=== PATIENT | female | born 1955 | race Caucasian/White ===

== ENCOUNTER 2025-05-31 10:51 | Outpatient (OUT) | payer MEDICARE, SELFPAY ==
--- NOTE | 2025-05-31 | XR_ITS ---
The [address] [address] Patient Name: ELVI BOYKIN MRN: [id number] date: 1955 Sex: F Assigned Patient Location: [facility] Current Patient Location: [facility] Accession/Order Number: [id number] Exam Date: 05/31/2025 11:02 Report Date: 05/31/2025 12:29 At the request of: KAREN MCKEON DO Procedure: XR hip RT 1V w/ pelvis RIGHT HIP WITH AP PELVIS - 3 views CLINICAL DATA: Chronic right hip pain. Patient plays pickle ball. COMPARISON: None AP view of the pelvis as well as AP and frog-lateral views of the right hip were obtained. There is mild osteopenia. No acute fracture or dislocation is identified. The hip joint spaces are maintained. There is no prominent hypertrophy. There is mild sclerosis at the SI joints and mild degenerative change at the lower imaged lumbar spine. No soft tissue abnormalities are present. Hemostasis clips are visualized at the proximal medial right thigh. XR/XR hip RT 1V w/ pelvis IMPRESSION: NO ACUTE BONY FINDINGS. Impression dictated by: Cathleen Squires M.D. 05/31/2025 12:29 PM Dictation Location: [place] [address] Electronically authenticated by: [id number] Y Date: 05/31/2025 12:29
--- OUTSIDE RECORDS SUMMARY | 2025-05-31 10:53 | XMS_ITS | Clinical Summary ---
Author Organization [facility] Address [address] [place] [address] Care Team Providers Care Web Services Architect Name Role Phone José Bourgeois MD Primary Care Provider Unav ailable Allergies Active Allergy Reactions Criticality Noted Date Comments Demeclocycline Unknown 07/24/2017 Oxaprozin Rash Medium 07/24/2017 Facial burning Medications aspirin, enteric coated (ASPIRIN, ENTERIC COATED) 81 mg EC tablet Take 81 mg by mouth. Active LIPITOR 20 mg tablet 8 Active raloxifene (EVISTA) 60 mg tablet 8 Active celecoxib (CELEBREX) 200 mg capsule Take 200 mg by mouth. 8 Active multivit with min-folic acid (ADULT MULTIVITAMIN EXTRA VITD3) 200 mcg chew Take by mouth. Active fluocinonide (LIDEX) 0.05 % ointment APPLY TO AFFECTED AREAS ON GROIN WEEKLY. 5 8 Active PROTONIX 40 mg tablet 8 Active ZOLOFT 100 mg tablet 8 Active zolpidem (AMBIEN) 10 mg tab Take 10 mg by mouth. 8 Active ranitidine HCl (ZANTAC 150 EFFERDOSE ORAL) Take by mouth. Active cholecalciferol, vitamin D3, (VITAMIN D-3) 10 mcg (400 unit) cap Take 400 Units by mouth once daily. Active Cetirizine 10 mg cap 10 mg. 9 Active alendronate (FOSAMAX) 70 mg tablet Take 1 tablet by mouth one time a week. 3 Active Active Problems No known active problems Family History Medical History Relation Comments Heart Father Cancer Mother Cancer Paternal Grandmother Glaucoma Sister Heart Sister Strabismus Sister Relation Status Comments Father Mother Paternal Grandmother Sister Social History Tobacco Use Types Packs/Day Years Used Date Smoking Tobacco: Never Smokeless Tobacco: Never Alcohol Use Standard Drinks/Week Comments Yes 0 (1 standard drink = 0.6 oz pur e alcohol) [facility] Area Deprivation Index Answer Date Thaddeus rded National Score (1-100), lower number is lower ri sk 26 04/10/2024 State Score (1-10), lower number is lower risk 1 04/10/2024 Data from: https://www.neighborhoodatlas.medicine.[facility]/. Last address used for calculation [address] 04/10/2024 Comments Unknown Sex and Gender Information Value Date Recorded Sex Assigned at Not on file Legal Sex Female 3:08 PM EDT Gender Identity Not on file Sexual Orientation Not on file Plan of Treatment Health Maintenance Due Date Last Done Comments Anxiety Screening 1972 Depression Screening 1972 Hepatitis C Screening [address] Colonography 11/24/1999 Cologuard (FIT-DNA) 11/24/1999 Colonoscopy 11/24/1999 Colorectal Cancer Screening 11/24/1999 Fecal Occult Blood 11/24/1999 Sigmoidoscopy 11/24/1999 Bone Density Screening 11/24/2019 Diabetes Screening 2022 11/24/2019 Advance Directive Discussion 09/23/2024 Lipid Screening 2024 11/24/2019 Influenza Vaccine (#1) 2025 3, 08/04/2022, 08/15/2021, Additional history exists RSV Vaccine (1 - 1-dose 75+ series) 2029 DTaP,Tdap,Td Vaccine (3 - Td or Tdap) 04/28/2033 04/28/2023, 10/05/2013 Pneumococcal Vaccine: 50+ Completed 10/04/2021, Shingrix Vaccine Completed 01/04/2022, , 03/22/2015 Insurance [facility] MEDICARE ADVANTAGE PPO Care Teams Web Services Architect Relationship Specialty Start Date End Date José Bourgeois MD PCP - General Family Medicine 07/03/18
--- OUTSIDE RECORDS SUMMARY | 2025-05-31 10:53 | XMS_ITS | Encounter Summary ---
Author Organization [facility] Address [address] [place] [address] Care Team Providers Care Hand Quilter Name Role Phone Asim Schaffer DO Primary Care Provider [phone] Lilly Kapadia MD Unavailable [phone] Shari Hankins DO Unavailable [phone] Encounter Details Date Type Department Care Team (Late st Contact Info) Description 06/08/2024 Abstract [facility] [place] [facility] [address] [place] [phone] Asim Schaffer DO [address] [place] [address] Social History Tobacco Use Types Packs/Day Years Used Date Smoking Tobacco: Never Smokeless Tobacco: Never Alcohol Use Standard Drinks/Week Comments Yes 1 (1 standard drink = 0.6 oz pure alcohol) caffeine intake : 1-2 cups per day decaf PHQ-2 Answer Date Recorded Patient Health Questionnaire-2 Score 0 06/04/2024 Comments No Sex and Gender Information Value Date Recorded Sex Assigned at Female 09/23/2023 5:20 PM EST Legal Sex Female 7:28 PM EDT Gender Identity Female 09/23/2023 5:20 PM EST Sexual Orientation Straight 09/23/2023 5 :20 PM EST documented as of this encounter Plan of Treatment Upcoming Encounters Date Type Department Care Team (Late st Contact Info) Description 06/03/2025 9:40 AM EDT Office Visit [facility] [address] [facility] [address] [place] [address] Asim Schaffer DO [address] [facility] [address] [place] [address] 10/14/2025 9:30 AM EST Office Visit [facility] [address] [facility] [address] [phone] Shari Hankins DO [address] [address] documented as of this encounter Visit Diagnoses Not on filedocumented in this encounter Care Teams Hand Quilter Relationship Specialty Start Date End Date Asim Schaffer DO [address] [facility] [address] [place] [address] PCP - General Family Medicine 06/04/24 Lilly Kapadia MD [address] [place] [address] Referring Physician Dermatology 06/04/24 Shari Hankins DO [address] [phone] Referring Physician Obstetrics and Gynecology 11/30/24 documented as of this encounter
--- OUTSIDE RECORDS SUMMARY | 2025-05-31 10:53 | XMS_ITS | Clinical Summary ---
Author Organization [facility] Address [address] [place] [address] Care Team Providers Care Medicare Sales Executive Name Role Phone Unavailable Primary Care Provider Unavailabl e Allergies Active Allergy Reactions Criticality Noted Date Comments Oxaprozin Rash Medium 07/24/2017 Facial burning Tetracyclines & Related 07/24/2017 Medications Calcium 600 MG Tab Take 2 tablets by mouth daily. Active Multiple Vitamins-Minerals (MULTIVITAMIN ADULT) Tab Take 1 tablet by mouth daily. Active Probiotic Product (4X PROBIOTIC PO) Lactobac 40-Bifido 3-S.Thermop Lactobac 40-Bifido 3-S.Thermop Active 1 TAB Oral Daily July 30, 2019 3:34pm 07-30-2019 [facility] ([id number]) 019 Active Cetirizine HCl 10 MG capsule 1 capsule. 019 Active Nutritional Supplements (VITAMIN D MAINTENANCE PO) Take 2 tablets by mouth daily. Active Vitamin D3 25 MCG (1000 UT) tablet Take 5 tablets by mouth daily. Calcium and D3 OTC gummy Active hydrocortisone 2.5 % Ointment ointment APPLY TO GROIN AREA DAILY ON SAT, SAT, SUN. 023 Active Ascorbic acid 500 MG tablet Take 1 tablet by mouth daily. Active zolpidem 5 MG tabletIndications:Insom lester, unspecified type Take 1 tablet by mouth at bedtime as needed for Sleep. 90 tablet 023 Active Clobetasol 0.05 % Ointment Apply 1 Application topically 2 times daily. 023 Active Celecoxib 200 MG capsuleIndications:Arth ritis Take 1 capsule by mouth daily. 90 capsule 1 024 Active Sertraline 100 MG tabletIndications:Depre ssion, unspecified depression type Take 1.5 tablets by mouth daily. 135 tablet 1 024 Active Atorvastatin (Lipitor) 20 MG tabletIndications:Pure hypercholesterolemia Take 1 tablet by mouth daily. 90 tablet 3 024 Active Pantoprazole (Protonix) [address] tablet DRIndications:Gastroeso phageal reflux disease without esophagitis Take 1 tablet by mouth daily. 90 tablet 3 024 Active alendronate 70 MG tabletIndications:Osteo penia of multiple sites Take 1 tablet by mouth every 7 days. 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 Fibrocystic breast disease 05/01/2017 Varicose vein of leg 05/01/2017 Arthritis 05/01/2017 Hyperlipidemia Osteopenia Resolved Problems Problem Noted Date Diagnosed Date Resolved Date Thrombophlebitis 05/01/2017 05/08/2018 Immunizations Immunization Administration Dates Next Due [id number] COVID-19 monovalen t vaccine, mRNA, Pfizer, 0.3 ML 11/14/2020,11/07/2020 COVID-19 bivalent vaccine (Moderna) 12yr+, 50mcg/0.5mL 09/10/2022 Influenza Vaccine 09/03/2013, 2,08/18/2011,2008 Influenza Vaccine 0.5ml 08/07/2010 Influenza Vaccine 0.5ml ([facility]) 06/23/2012, 08/18/2011 Influenza Vaccine, Preservat jose eduardo Free ID 08/05/2017 Influenza Vaccine, Quadrival ent, Adjuvanted 07/03/2023 Influenza Vaccine, Trivalent 07/14/2024,09/03/20 13 Influenza, High-dose Seasona l, Quadrivalent, Preservative Free 08/04/2022,08/15/2021,06/13/2020 Influenza, injectable, quadr ivalent, preservative free 08/26/2019,05/30/2018,07/24/2017,2015 Pneumococcal Conjugate 13-va lent vaccine 06/13/2020 Pneumococcal Polysac 23-Roma nt Vaccine 10/04/2021 Tdap Vaccine 04/28/2023,10/05/2013 Zoster Vaccine, Live 03/22/2015 Zoster Vaccine, Recomb 01/04/2022,09/06/2021 influenza, injectable, quadrivalent 07/24/2017 Family History Medical History Relation Name Comments Arthritis - Osteo Father GI Disease Father Breast Cancer Mother Relation Name Status Comments Father Mother (Age 66) Social History Tobacco Use Types Packs/Day Years Used Date Smoking Tobacco: Never Smokeless Tobacco: Never Tobacco Cessation:Counseling Given: Not Answered Alcohol Use Standard Drinks/Week Comments Yes 0 (1 standard drink = 0.6 oz pur e alcohol) Depression Answer Date Recorded PHQ-9 Total Score (Interpret ation of Total Score 1-4 = Minimal depression; 5-9 = Mild depression; 10-14 = Moderate depression; 15-19 = Moderately severe depression) 1 12/11/2023 Comments No Sex and Gender Information Value Date Recorded Sex Assigned at Not on file Legal Sex Female 3:25 PM EDT Gender Identity Female 05/01/2017 9:37 AM EDT Sexual Orientation Not on file Last Filed Vital Signs Vital Sign Reading Time Taken Comments Blood Pressure 132/82 04/29/2024 2:39 PM EDT Pulse 92 04/29/2024 2:39 PM EDT Temperature 35.2 C (95.3 F) 04/29/2024 2:39 PM EDT Respiratory Rate 18 12/11/2023 2:50 PM EDT Oxygen Saturation 98% 04/29/2024 2:39 PM EDT Inhaled Oxygen Concentration - - Weight 74.8 kg (164 lb 12.8 oz) 04/29/2024 2:39 PM EDT Height 170.2 cm (5' 7 ) 04/29/2024 2:39 PM EDT Body Mass Index 25.81 04/29/2024 2:39 PM EDT Plan of Treatment Health Maintenance Due Date Last Done Comments HEPATITIS C VIRUS SCREENING 1955 CERVICAL CANCER SCREENING DISCUSSION 11/24/1975 COLORECTAL CANCER SCREENING DISCUSSION 01/03/2022 01/03/2021, 05/02/2010 (Previously completed) COVID-19 VACCINE ( season) 2024 09/12/2023, 09/10/2022, 06/19/2021, Additional history exists MAMMOGRAM SCREENING DISCUSSION 11/25/2024 11/26/2023, 11/21/2022, 11/21/2022, Additional history exists INFLUENZA VACCINE (#1) 2025 , 07/03/2023, 08/04/2022, Additional history exists DEXA SCAN 11/07/2025 11/07/2020, 02/0 01/2018, 03/15/2009 (Previously completed) LIPID SCREENING 04/29/2029 04/29/2024, 11/24/2019 RSV VACCINE (1 - 1-dose 75+ series) 2029 TETANUS 04/28/2033 04/28/2023, 10/05/2013 PNEUMOCOCCAL VACCINE SERIES Completed 10/04/2021, 0 06/13/2020 ZOSTER (SHINGLES) VACCINE Completed 2021, 09/06/2021, 03/22/2015 TDAP (ADULT) Completed 04/28/2023, 10/05/2013 HEP B VACCINE Aged Out No longer elig ible based on patient's age to complete this topic Procedures Procedure Name Priority Date/Time Associated Diagnosis Comments LIPID PANEL W CALCULATED LDL Today 04/29/2024 3:47 PM EDT Pure hypercholesterolemia MAMMOGRAPHY (OUTSIDE) Routine 11/26/2023 2:30 PM EST OUTSIDE COLONOSCOPY Routine 01/03/2021 BONE DENSITY (OUTSIDE) Routine 11/07/2020 from Last 3 Months or Most Recently Relevant to Health Maintenance Results * (ABNORMAL) LIPID PANEL W CALCULATED LDL (04/29/2024 3:47 PM EDT) CHOLESTEROL 183 107 - 217 MG/DL [address] TRIGLYCERIDE 199(H) 0 - 150 MG/DL [address] HDL CHOLESTEROL 48 33 - 75 MG/DL [address] LDL CHOLESTEROL, CALCULATED 95 <100 MG/DL [address] VLDL Cholesterol, Calculated 40(H) 5 - 25 MG/DL [address] TCHOL/HDL RATIO, MANUAL ENTER 3.[address] Comment: RISK TOTAL/HDL RATIO MEN WOMEN 1/2 AVERAGE 3.43 3.27 AVERAGE 4.97 4.44 2X AVERAGE 9.55 7.05 3X AVERAGE 23.99 11.04 Blood 04/29/2024 3:47 PM EDT 04/29/2024 3:48 PM EDT José Bourgeois MD CHEMISTRY ORDERABLES Final Resu lt [facility] [address] [facility] [address] [place] [address] * MAMMOGRAPHY (OUTSIDE) (11/26/2023 2:30 PM EST) us José Bourgeois MD BREAST IMAGING Final Result * COLONOSCOPY (OUTSIDE) (01/03/2021) Anatomical Region Laterality Modality Other [facility] Provider GI/BRONCH PROCEDURE ORDERABL ES Final Result * BONE DENSITY (OUTSIDE) (11/07/2020) us José Bourgeois MD DEXA ORDERABLES Final Result from Last 3 Months or Most Recently Relevant to Health Maintenance [place] [address]
--- OUTSIDE RECORDS SUMMARY | 2025-05-31 10:53 | XMS_ITS | Clinical Summary ---
Author Organization [facility] Address [facility] [place] [address] Care Team Providers Care Full Decator Operator Name Role Phone Unavailable Primary Care Provider Unavailabl e Social History Tobacco Use Types Packs/Day Years Used Date Smoking Tobacco: Never Assessed Comments Unknown Sex and Gender Information Value Date Recorded Sex Assigned at Not on file Legal Sex Female 12:00 AM EDT Gender Identity Not on file Sexual Orientation Not on file Plan of Treatment Not on file
--- OUTSIDE RECORDS SUMMARY | 2025-05-31 10:53 | XMS_ITS | Encounter Summary ---
Author Organization [facility] Address [address] [place] [address] Care Team Providers Care Over Hauler Helper Name Role Phone Unallocated, Noms Provider Primary Care Provi maria fernanda Asim Schaffer DO Primary Care Provider [phone] Lilly Kapadia MD Unavailable [phone] Shari Hankins DO Unavailable [phone] Encounter Details Date Type Department Care Team (Late st Contact Info) Description 04/01/2024 Orders Only [facility] [address] [place] [address] [address] Shari Hankins DO [address] [address] Social History Tobacco Use Types Packs/Day Years Used Date Smoking Tobacco: Never Smokeless Tobacco: Never Alcohol Use Standard Drinks/Week Comments Yes 1 (1 standard drink = 0.6 oz pure alcohol) caffeine intake : 1-2 cups per day decaf Comments No Sex and Gender Information Value Date Recorded Sex Assigned at Female 09/23/2023 5:20 PM EST Legal Sex Female 7:28 PM EDT Gender Identity Female 09/23/2023 5:20 PM EST Sexual Orientation Straight 09/23/2023 5: 20 PM EST documented as of this encounter Plan of Treatment Upcoming Encounters Date Type Department Care Team (Late st Contact Info) Description 06/03/2025 9:40 AM EDT Office Visit [facility] [address] [facility] [address] [place] [phone] Asim Schaffer DO [address] [facility] [address] [place] [address] 10/14/2025 9:30 AM EST Office Visit [facility] [address] [place] [address] [address] Shari Hankins DO [address] [address] documented as of this encounter Procedures Procedure Name Priority Date/Time Associated Diagnosis Comments MAMMO 3D,BILATERAL SCREENING MAMMOGRAM WITH TOMOSY Routine 11/26/2023 2:02 PM EST documented in this encounter Results * MAMMO 3D,BILATERAL SCREENING MAMMOGRAM WITH TOMOSY (11/26/2023 2:02 PM EST) Anatomical Region Laterality Modality Radiographic Pearl ging Shari Hankins DO IMG XR PROCEDURES Final Re sult documented in this encounter Visit Diagnoses Not on filedocumented in this encounter Care Teams Over Hauler Helper Relationship Specialty Start Date End Date Unallocated, Noms MD Michael [address] [place] [address] PCP - General Family Medicine 09/24/23 06/03/24 Asim Schaffer DO [address] [facility] [address] [place] [address] PCP - General Family Medicine 06/04/24 Lilly Kapadia MD [address] [place] [address] Referring Physician Dermatology 06/04/24 Shari Hankins DO [address] [address] Referring Physician Obstetrics and Gynecology 11/30/24 documented as of this encounter
--- OUTSIDE RECORDS SUMMARY | 2025-05-31 10:53 | XMS_ITS | Clinical Summary ---
Author Organization [facility] Address [address] [place] [address] Phone Care Team Providers Care Clerical Methods Analyst Name Role Phone Karime Asim Theresa SU Primary Care Provider Social History Tobacco Use Types Packs/Day Years Used Date Smoking Tobacco: Never Assessed Comments Unknown Sex and Gender Information Value Date Recorded Sex Assigned at Not on file Legal Sex Female 9:59 PM EDT Gender Identity Not on file Sexual Orientation Not on file Plan of Treatment Health Maintenance Due Date Last Done Comments CT Colonography 1955 FIT-DNA (Cologuard) 1955 FIT 1955 Lipid Panel 1955 Sigmoidoscopy 1955 Welcome to Medicare Visit 1955 MMR Vaccines (1 of 1 - Standard series) 11/24/1955 Diabetes Screening 1972 Hepatitis C Screening 1972 COVID-19 Vaccine ( season) 2025 09/12/2023, 09/10/2022 Influenza Vaccine (#1) 2025 , 07/14/2024, 07/03/2023, Additional history exists Mammogram 11/27/2025 11/27/2024, 03/2025, 11/21/2022, Additional history exists Bone Density Scan 12/02/2026 12/02/2024, , 11/21/2022 RSV High Risk: (Elderly (60+) or Population) (1 - 1-dose 75+ series) 2029 Colonoscopy 01/03/2031 01/03/2021 Colorectal Cancer Screening 01/03/2031 DTaP/Tdap/Td Vaccines (3 - Td or Tdap) 04/28/2033 04/28/2023, 10/05/2013 Pneumococcal Vaccine Completed 10/04/2021, 06/13/20 20 Zoster Vaccines Completed 01/04/2022, 08/23, 03/22/2015 HIB Vaccines Aged Out No longer eligi ble based on patient's age to complete this topic HPV Vaccines Aged Out No longer eligi ble based on patient's age to complete this topic Hepatitis A Vaccines Aged Out No long er eligible based on patient's age to complete this topic Hepatitis B Vaccines Aged Out No long er eligible based on patient's age to complete this topic IPV Vaccines Aged Out No longer eligi ble based on patient's age to complete this topic Meningococcal Vaccine Aged Out No debby neftaly eligible based on patient's age to complete this topic Rotavirus Vaccines Aged Out No longer eligible based on patient's age to complete this topic Insurance [employer] MEDICARE [employer] MEDICARE Care Teams Clerical Methods Analyst Relationship Specialty Start Date End Date Asim Schaffer DO [address] [facility] [address] [place] [address] PCP - General 01/23/25
--- OUTSIDE RECORDS SUMMARY | 2025-05-31 10:53 | XMS_ITS | Encounter Summary ---
Author Organization [facility] Address [address] [facility] [place] [address] Care Team Providers Care Deicer Tester Name Role Phone Asim Schaffer DO Primary Care Provider [phone] Lilly Kapadia MD Unavailable [phone] Shari Hankins DO Unavailable [phone] Encounter Details Date Type Department Care Team (Latest Contact Info) Description 02/09/2025 Results Follow-Up [facility] [place] [facility] [address] [facility] [address] [place] [phone] Asim Schaffer DO [address] [facility] [address] [place] [address] Comprehensive metabolic panel, Lipid panel, HEMOGRAM CBC WITHOUT DIFF ([facility]) Social History Tobacco Use Types Packs/Day Years Used Date Smoking Tobacco: Never Smokeless Tobacco: Never Alcohol Use Standard Drinks/Week Comments Not Currently 1 (1 standard drink = 0.6 oz pure alcohol) caffeine intake : 1-2 cups per day decaf PHQ-2 Answer Date Recorded Patient Health Questionnaire-2 Score 0 11/30/2024 Comments No Sex and Gender Information Value [...] 06/03/2025 9:40 AM EDT Office Visit [facility] [address] [facility] [address] [place] [phone] Asim Schaffer DO [address] [facility] [address] [place] [address] 10/14/2025 9:30 AM EST Office Visit [facility] [place] [facility] [address] [facility] [address] [phone] Shari Hankins DO [address] [address] documented as of this encounter Visit Diagnoses Not on filedocumented in this encounter Additional Health Concerns Assessment Noted Time PHQ-9 Depression Total Score: 0 12/01/19 25 10:00 AM EDT documented as of this encounter Care Teams Deicer Tester Relationship Specialty Start Date End Date Asim Schaffer DO [address] [facility] [address] [place] [address] PCP - General Family Medicine 06/04/24 Lilly Kapadia MD [address] [place] [address] Referring Physician Dermatology 06/04/24 Shari Hankins DO [address] [phone] Referring Physician Obstetrics and Gynecology 11/30/24 documented as of this encounter
--- OUTSIDE RECORDS SUMMARY | 2025-05-31 10:53 | XMS_ITS | Encounter Summary ---
Author Organization [facility] Address [address] [place] [address] Care Team Providers Care Member Of Parliament Name Role Phone Asim Schaffer DO Primary Care Provider [phone] Lilly Kapadia MD Unavailable [phone] Tennille Hankins DO Unavailable [phone] Encounter Details Date Type Department Care Team (Late st Contact Info) Description 11/27/2024 External Result Encounter [facility] External Department Unsolicited Tennille Hankins DO [address] [phone] Social History Tobacco Use Types Packs/Day Years [...] PM EST documented as of this encounter Functional Status * Over the past 2 weeks, how often have you been bothered by any of the following problems? Question Answer Date of Assessment Author Little interest or pleasure in doing things Not at all 11/30/2024 10:00 AM EDT Rosina Dhaliwal MA Feeling down, depressed, or hopeless Not at all 11/30/2024 10:00 AM EDT Rosina Dhaliwal MA Patient Health Questionnaire -2 Score 0 11/30/2024 10:00 AM EDT Rosina Dhaliwal MA * Question Answer Date of Assessment Author Trouble falling or staying asleep, or sleeping too much Not at all 11/30/2024 10:00 AM EDT Rosina Dhaliwal MA Feeling tired or having ro le energy Not at all 11/30/2024 10:00 AM EDT Rosina Dhaliwal MA Poor appetite or overeating Not at all 11/30/2024 10 :00 AM CAREYT Rosina Dhaliwal MA Feeling bad about yourself - or that you are a failure or have let yourself or your family down Not at all 11/30/2024 10:00 AM CAREYT Rosina Dhaliwal MA Trouble concentrating on things, such as reading the newspaper or watching television Not at all 11/30/2024 10:00 AM EDT Rosina Dhaliwal MA Moving or speaking so slowly that other people could have noticed? Or the opposite - being so fidgety or restless that you have been moving around a lot more than usual. Not at all 11/30/2024 10:00 AM EDT Rosina Vegas MA Thoughts that you would be better off or hurting yourself in some way Not at all 11/30/2024 10:00 AM EDT Rosina Dhaliwal MA Patient Health Questionnaire -9 Score 0 11/30/2024 10:00 AM EDT Rosina Dhaliwal MA documented as of this encounter Plan of Treatment Upcoming Encounters Date Type Department Care Team (Late st Contact Info) Description 06/03/2025 9:40 AM EDT Office Visit [facility] [place] [address] [place] [address] [place] [address] Asim Schaffer DO [address] [place] [address] [place] [address] 10/14/2025 9:30 AM EST Office Visit [facility] [address] [place] [address] [phone] Tennille Hankins DO [address] [phone] documented as of this encounter Procedures Procedure Name Priority Date/Time Associated Diagnosis Comments BI MAMMOGRAM SCREENING TOMOSYNTHESIS BILATERAL 11/27/2024 3:07 PM EST documented in this encounter Results * Bilateral screening mammogram with tomosynthesis (11/27/2024 3:07 PM EST) Anatomical Region Laterality Modality Breast Bilateral Mammography 11/27/2024 3:07 PM EST Impressions 11/27/2024 3:33 PM EST NO MAMMOGRAPHIC EVIDENCE OF MALIGNANCY. ROUTINE FOLLOW-UP IS RECOMMENDED IN ONE YEAR. RESULT CODE: 1 Negative DENSITY CODE: 2 (approximately 25-50% glandular) There are scattered areas of fibroglandular density. FOLLOW UP: 1YR The false-negative rate of mammography is approximately 10-percent. Management of a palpable abnormality must be based on clinical grounds. Patient was entered into a reminder system with a target due date for the next mammogram. Impression dictated by: Preston Noyola M.D.11/27/2024 3:31 PM Dictation Location: [facility] Dictated By: Preston Noyola MD 11/27/24 1507 Signed By: <Electronically signed by Preston Noyola MD in OV> 11/27/24 1531 Narrative 11/27/2024 3:33 PM EST [facility] [address] [place] [address] [address] [place] [address] Mammography Report Signed Patient: Cher Lopez MR#: [id number] : 1955 Acct:[id number] Age/Sex: 69 / F Adm Date: 11/27/24 Loc: [place] Room: Type: [facility] CLI Attending Dr: Tennille Hankins DO Ordering Provider: TENNILLE HANKINS DO Date of Service: 11/27/24 Procedure(s): MM screening mammo BI w/CAD Accession Number(s): ([id number]) MM/MM screening mammo BI w/CAD: SCREENING Copies to: TENNILLE HANKINS DO CLINICAL DATA: Screening for malignancy. SCREENING MAMMOGRAM - FULL FIELD DIGITAL WITH TOMOSYNTHESIS AND CAD COMPARISON:Prior studies dating back to 2021 Tomosynthesis craniocaudal and mediolateral oblique views of both breasts were obtained using low- dose digital technique. This examination was reviewed with the aid of CAD. The breast tissue is composed of scattered fibroglandular densities. There are no dominant masses, typically malignant calcifications or architectural distortion. There has been no significant interval change. MM/MM screening mammo BI w/CAD Procedure Note Radiology, Radiologist, MD - 11/27/2024 [place] [address] Mammography Report Signed Patient: Cher Lopez GMR#: [id number] : 5Acct:[id number] Age/Sex: 69 / FAdm Date: 11/27/24 Loc: [place] Room:Type: [facility] Attending Dr: Tennille Hankins DO Ordering Provider: TENNILLE HANKINS DO Date of Service: 11/27/24 Procedure(s): MM screening mammo BI w/CAD Accession Number(s): ([id number]) MM/MM screening mammo BI w/CAD:SCREENING Copies to: TENNILLE HANKINS DO CLINICAL DATA: Screening for malignancy. SCREENING MAMMOGRAM - FULL FIELD DIGITAL WITH TOMOSYNTHESIS AND CAD COMPARISON:Prior studies dating back to 2021 Tomosynthesis craniocaudal and mediolateral oblique views of both breastswere obtained using low- dose digital technique. This examination was reviewed with the aid ofCAD. The breast tissue is composed of scattered fibroglandular densities.There are no dominant masses, typically malignant calcifications or architectural distortion. There hasbeen no significant interval change. MM/MM screening mammo BI w/CAD IMPRESSION: NO MAMMOGRAPHIC EVIDENCE OF MALIGNANCY. ROUTINE FOLLOW-UP IS RECOMMENDED IN ONE YEAR. RESULT CODE: 1 Negative DENSITY CODE: 2 (approximately 25-50% glandular) There are scattered areasof fibroglandular density. FOLLOW UP: 1YR The false-negative rate of mammography is approximately 10-percent. Management of a palpable abnormality must be based on clinical grounds. Patient was entered into a reminder system with a target due date for thenext mammogram. Impression dictated by: Preston Noyola M.D.11/27/2024 3:31 PM Dictation Location: [facility] Dictated By: Preston Noyola MD 11/27/24 1507 Signed By: <Electronically signed by Preston Noyola MD in OV> 11/27/24 1531 Tennille Hankins DO IMG BI PROCEDURES Final Re sult documented in this encounter Visit Diagnoses Not on filedocumented in this encounter Care Teams Member Of Parliament Relationship Specialty Start Date End Date Asim Schaffer DO [address] [facility] [address] [place] [address] PCP - General Family Medicine 06/04/24 Lilly Kapadia MD [address] [place] [address] Referring Physician Dermatology 06/04/24 Tennille Hankins DO [address] [place], [place] [address] [phone] Referring Physician Obstetrics and Gynecology 11/30/24 documented as of this encounter
--- OUTSIDE RECORDS SUMMARY | 2025-05-31 10:53 | XMS_ITS | Encounter Summary ---
Author Organization [facility] Address [address] [place] [address] Care Team Providers Care Home Health Nurse Name Role Phone José Bourgeois MD Primary Care Provider Unavaila ble Reason for Visit * Reason Onset Date Comments Medication Refill 09/03/2022 Encounter Details Date Type Department Care Team (Late st Contact Info) Description 09/03/2022 Telephone [facility] Medicine [address] [place] [phone] José Bourgeois MD Medication Refill Social History Tobacco Use Types Packs/Day Years Used Date Smoking Tobacco: Never Smokeless Tobacco: Never Alcohol Use Standard Drinks/Week Comments Yes 0 (1 standard drink = 0.6 oz pur e alcohol) Depression Answer Date Recorded PHQ-9 Total Score (Interpret ation of Total Score 1-4 = Minimal depression; 5-9 = Mild depression; 10-14 = Moderate depression; 15-19 = Moderately severe depression) 3 05/27/2020 Comments No Sex and Gender Information Value Date Recorded Sex Assigned at Not on file Legal Sex Female 3:25 PM EDT Gender Identity Female 05/01/2017 9:37 AM EDT Sexual Orientation Not on file documented as of this encounter Miscellaneous Notes * Telephone Encounter - Sushma Cohn - 09/03/2022 9:40 AM EST Patient states that pharmacy says that there are no refills on raloxifene 60 MG tablet. Patient would like this refill sent to [facility] on [address] in [place]. Thank you. documented in this encounter Plan of Treatment Not on file documented as of this encounter Visit Diagnoses Not on filedocumented in this encounter Additional Health Concerns Assessment Noted Time PHQ-9 Depression Total Score: 3 05/27/20 20 3:35 PM EDT documented as of this encounter Care Teams Home Health Nurse Relationship Specialty Start Date End Date José Bourgeois MD PCP - General Family Medicine 02/22/17 06/07/24 documented as of this encounter
--- OUTSIDE RECORDS SUMMARY | 2025-05-31 10:53 | XMS_ITS | Encounter Summary ---
Author Organization [facility] Address [address] [place] [address] Phone Care Team Providers Care Carbon Electrodes Supervisor Name Role Phone José Bourgeois MD Primary Care Provider Mau Parmar Primary Care Provider + Asim Schaffer DO Primary Care Provider + [phone] Reason for Referral * Imaging (Routine) - Pending Review Specialty Diagnoses / Procedures Referred By Adiel wells Referred To Contact Radiology Diagnoses Hyperlipidemia, unspecified Family history of ischemic heart disease and other diseases of the circulatory system Procedures CT cardiac scoring wo IV contrast Mau Ross APRN-CNP [address] [place] [address] [place] [address] Phone: tel: fax: Referral ID Status Reason Start Date Expiration Date Visits Requested Visits Authorized [id number] Pending Review Perform Procedure 12/01/2024 12/01/2025 1 1 Encounter Details Date Type Department Care Team (Latest Contact Info) Description 12/01/2024 Transcribe Orders [facility] [address] [place] [address] Mau Ross APRN-CNP [address] [place] [address] [place] [address] Hyperlipidemia, unspecified (Primary Dx); Family history of ischemic heart disease and other diseases of the circulatory system Social History Tobacco Use Types Packs/Day Years Used Date Smoking Tobacco: Never Assessed Comments Unknown Sex and Gender Information Value Date Recorded Sex Assigned at Not on file Legal Sex Female 9:59 PM EDT Gender Identity Not on file Sexual Orientation Not on file documented as of this encounter Plan of Treatment Not on file documented as of this encounter Results * CT cardiac scoring wo IV contrast (01/23/2025 1:16 PM EDT) Anatomical Region Laterality Modality Thoracic, Chest Computed Tomogra phy 01/23/2025 4:40 PM EDT 01/25/2025 8:21 AM EDT Addenda Addendum by Kristyn Rodriguez MD on 01/25/2025 8:19 AM EDT Interpreted By: Harshil Rodriguez, ADDENDUM: Technical: The following is to serve as an over-read for an unenhanced cardiac CT, to evaluate the extravascular structures. Contiguous unenhanced CT sections are performed from level the morales to the upper abdomen. Findings: The visualized portions of both lungs are clear. There is no sign of pathologic lymph node enlargement. There is no pericardial or pleural effusion. Images through the upper abdomen are unremarkable. The visualized osseous structures are intact. There is a nonspecific 6 mm sclerotic focus in a midthoracic vertebra which could reflect bone island. Impression: Nonspecific 6 mm sclerotic focus is identified in the midthoracic vertebra. This could reflect a bone island. The extravascular structures are otherwise unremarkable. Signed by: Harshil Rodriguez 01/25/2025 8:19 AM -------- ORIGINAL REPORT -------- Dictation workstation: [id number] Impressions 01/23/2025 4:38 PM EDT 1. Coronary artery calcium score of 217*. 2. VOGEL 83rd percentile for age, gender, and race in asymptomatic patients. *Coronary Artery Agatston score Score risk Very low 1-99 Mildly increased 100-299 Moderately increased >300 Moderate to severely increased >800 Oneida et al. JCCT 2016 (http://dx.doi.org/10.1016/j.jcct.2016.11.003) VOGEL Percentile In general, greater than 75th percentile for age, gender, and race is considered to be a higher relative risk and higher lifetime risk condition. Greater than 75th percentile=moderate to severely increased relative risk irrespective of the score. Advise using VOGEL 10 year CHD risk calculator below for better discrimination of risk. VOGEL 10-Year CHD Risk with Coronary Artery Calcification can be calcuate using link below https://www.vogel-nhlbi.org/MESACHDRisk/MesaRiskScore/RiskScore.aspx Tasneem hawkins al. JACC 2015 (http://dx.doi.org/10.1016/j.j acc.2015.08.035) Reading Bleach Maker: Dr. Harshil Mendoza, Date: 01/23/2025 4:38 pm Signed by: Harshil Mendoza 01/23/2025 4:38 PM Dictation workstation: [id number] Narrative 01/23/2025 4:38 PM EDT Interpreted By: Harshil Mendoza, STUDY: CT CARDIAC SCORING WO IV CONTRAST; 01/23/2025 1:16 pm INDICATION: Signs/Symptoms:SCREENING. COMPARISON: None. ACCESSION NUMBER(S): [id number] ORDERING CLINICIAN: MAU ROSS TECHNIQUE: Using prospective ECG gating, CT scan of the coronary arteries was performed without intravenous contrast. Coronary calcium scoring was performed according to the method of Agatston. CT Dose-Length Product (DLP): 65.1 mGy*cm CT Dose Reduction Employed: Yes, prospective gating, iterative reconstruction. FINDINGS: The score and distribution of calcium in the coronary arteries is as follows: LM 110 LAD 106 LCx 0 RCA 1 Total 217 The visualized ascending thoracic aorta measures 3.6 cm in diameter. The heart is normal in size. No pericardial effusion is present. The main pulmonary artery, right and left pulmonary artery are normal in size. Procedure Note Harshil Mendoza DO / Kristyn Rodriguez MD - 01/23/2025 Interpreted By: Harshil Mendoza, STUDY: CT CARDIAC SCORING WO IV CONTRAST; 01/23/2025 1:16 pm INDICATION: Signs/Symptoms:SCREENING. COMPARISON: None. ACCESSION NUMBER(S): [id number] ORDERING CLINICIAN: MAU ROSS TECHNIQUE: Using prospective ECG gating, CT scan of the coronary arteries was performed without intravenous contrast. Coronary calcium scoring was performed according to the method of Agatston. CT Dose-Length Product (DLP): 65.1 mGy*cm CT Dose Reduction Employed: Yes, prospective gating, iterative reconstruction. FINDINGS: The score and distribution of calcium in the coronary arteries is as follows: LM 110 LAD 106 LCx 0 RCA 1 Total 217 The visualized ascending thoracic aorta measures 3.6 cm in diameter. The heart is normal in size. No pericardial effusion is present. The main pulmonary artery, right and left pulmonary artery are normal in size. IMPRESSION: 1. Coronary artery calcium score of 217*. 2. VOGEL 83rd percentile for age, gender, and race in asymptomatic patients. *Coronary Artery Agatston score Score risk Very low 1-99 Mildly increased 100-299 Moderately increased >300 Moderate to severely increased >800 Oneida et al. JCCT 2016 (http://dx.doi.org/10.1016/j.jcct.2016.11.003) VOGEL Percentile In general, greater than 75th percentile for age, gender, and race is considered to be a higher relative risk and higher lifetime risk condition. Greater than 75th percentile=moderate to severely increased relative risk irrespective of the score. Advise using VOGEL 10 year CHD risk calculator below for better discrimination of risk. VOGEL 10-Year CHD Risk with Coronary Artery Calcification can be calcuate using link below https://www.vogel-nhlbi.org/MESACHDRisk/MesaRiskScore/RiskScore.aspx Tasneem et al. JACC 2015 (http://dx.doi.org/10.1016/j.j acc.2015.08.035) Reading Bleach Maker: Dr. Harshil Mendoza, Date: 01/23/2025 4:38 pm Signed by: Harshil Mendoza 01/23/2025 4:38 PM Dictation workstation: [id number] Mau Ross APRN-TOUR PRODUCTION SUPERVISOR IM CT PROCEDURES Edited Result - Final documented in this encounter Visit Diagnoses Diagnosis Hyperlipidemia, unspecified- Primary Family history of ischemic heart disease and other diseases of the circulatory system Hyperlipidemia, unspecified Family history of ischemic heart disease and other diseases of the circulatory system documented in this encounter Care Teams Carbon Electrodes Supervisor Relationship Specialty Start Date End Date José Bourgeois MD PCP - General 04/27/23 01/15/25 Mau Ross, ADMINISTRATIVE STAFF SUPERVISOR-TOUR PRODUCTION SUPERVISOR [address] [facility] [address] [place] [address] PCP - General Family Medicine 01/16/25 01/22/25 Asim Schaffer DO [address] [facility] [address] [place] [address] PCP - General 01/23/25 documented as of this encounter
--- OUTSIDE RECORDS SUMMARY | 2025-05-31 10:53 | XMS_ITS | Encounter Summary ---
Author Organization [facility] Address [address] [place] [address] Care Team Providers Care Wood Grainer Name Role Phone Asim Schaffer DO Primary Care Provider [phone] Lilly Kapadia MD Unavailable [phone] Shari Hankins DO Unavailable [phone] Encounter Details Date Type Department Care Team (Late st Contact Info) Description 10/21/2024 Abstract [facility] [address] [place] [address] [place] [phone] Asim Schaffer DO [address] [place] [address] [place] [address] Social History Tobacco Use Types Packs/Day Years [...] 06/03/2025 9:40 AM EDT Office Visit [facility] [address] [address] [place] [address] Asim Schaffer DO [address] [facility] [address] [place] [address] 10/14/2025 9:30 AM EST Office Visit [facility] [address] [place] [address] [facility] [address] [phone] Shari Hankins DO [address] [phone] documented as of this encounter Visit Diagnoses Not on filedocumented in this encounter Care Teams Wood Grainer Relationship Specialty Start Date End Date Asim Schaffer DO [address] [facility] [address] [place] [address] PCP - General Family Medicine 06/04/24 Lilly Kapadia MD [address] [place] [address] Referring Physician Dermatology 06/04/24 Shari Hankins DO [address] [phone] Referring Physician Obstetrics and Gynecology 11/30/24 documented as of this encounter
== END 2025-05-31 10:52 | disposition home or self-care (01) ==
LOC: RAD 10:52
PROVIDERS: PCP Family Medicine; Visit Provider Orthopaedic Surgery Orthopaedic Trauma
DX: M25.551 Pain in right hip (principal)
CPT/HCPCS: 73501